=== PATIENT | female | born 1960 | race Hispanic/Latino ===

== ENCOUNTER 2017-06-01 07:26 | Day surgery (SDC) | payer BC ==
[2017-05-10 14:01] VITALS: BMI 33.6
[2017-06-01 07:45] LABS: BASO # 0.04 K/mm3 (0.0-2.0); BASO % 0.7 % (0.0-3.0); EOS # 0.1 (0.0-0.7); EOS % 2.1 % (1.5-5.0); GRAN # 2.11 (1.4-6.5); GRAN % 36.8 % (50.0-68.0); HEMOGLOBIN 12.4 g/dL (12.0-16.0); LYMPH # 2.9 (1.2-3.4); LYMPH % 51.2 % (22.0-35.0); MEAN CELL VOLUME 89.2 fl (80.0-105.0); MEAN CORPUSCULAR HEMOGLOBIN 29.8 pg (25.0-35.0); MEAN CORPUSCULAR HGB CONC 33.4 g/dl (31.0-37.0); MEAN PLATELET VOLUME 9.1 fl (7.0-11.0); MONO # 0.5 (0.1-0.6); MONO % 9.2 % (1.0-6.0); PLATELET COUNT 260 10^3/uL (120.0-450.0); RBC 4.16 10^6/uL (3.5-6.1); RED CELL DISTRIBUTION WIDTH 13.4 % (11.5-14.5); WHITE BLOOD COUNT 5.7 10^3/ul (4.5-11.0)
[2017-06-01 07:56] LABS: BLOOD UREA NITROGEN 12 mg/dL (7-21); CALCIUM 9.1 mg/dL (8.4-10.5); GFR AFRICAN-AMERICAN > 60; GFR NON-AFRICAN AMERICAN > 60; HDL CHOLESTEROL 58 mg/dL (29-60); INR 0.96 (0.93-1.08); PARTIAL THROMBOPLASTIN TIME 24.5 Seconds (23.7-30.8); PROTHROMBIN TIME 10.4 Seconds (9.9-11.8)
[2017-06-01 08:07] LABS: LDL CHOLESTEROL 119 mg/dL (0-129)
[2017-06-01] MEDS ORDERED: Lidocaine 2% Inj (20ml) ONE (08:56)
[2017-06-01] MEDS ORDERED: Phenylephrine 10 mg/ml Inj ONE (08:57)
[2017-06-01] MEDS ORDERED: Midazolam 2 MG/2 ML VIAL ONE ×2 (08:57→10:51)
[2017-06-01] MEDS ORDERED: Nitroglycerin 50mg in D5W 0 MG/0 ML BOTTLE IV ONE (08:58)
[2017-06-01] MEDS ORDERED: Iohexol 350mgl/ml 50 ML ONE (08:58)
[2017-06-01] MEDS ORDERED: Iodixanol 320 MG/ML 200 ML BOTTLE IV ONE (08:58)
[2017-06-01 12:41] VITALS: O2SAT 98
[2017-06-01 13:57] VITALS: TEMP 98.1
[2017-06-01] MEDS ORDERED: Bacitracin 500 Units/gm Oint Foilpak UD ONE (13:59)
[2017-06-01 14:12] VITALS: BP 99/54; PULSE 62; RESP 18
--- NOTE | 2017-06-07 14:27 | CARD ---
APPROVED REPORT Procedure(s) performed: Left Heart Catheterization HISTORY The patient is a 56 year-old female with a history of : most recent EF: 55%. (EF Method: Radionuclide), tobacco history() : The patient is a current smoker , dyslipidemia . INDICATION The indication(s) include : positive stress test, chest pain. CASE TECHNIQUE The patient was brought electively to the Cardiac Catheterization Laboratory in a fasting state and was prepped and draped in a sterile manner. The right wrist was infiltrated with 2% Lidocaine subcutaneous anesthesia. A 6 Fr Glidesheath (Radial) sheath was performed using coronary diagnostic catheters. The left coronary system was accessed and visualized with a 6 Fr JL 4 catheter. The right coronary system was accessed and visualized with a 6 Fr JR 4 catheter. The left ventricle was accessed and visualized with a 6 Fr Pigtail catheter. Left ventricular/Aortic Valve gradient assessed on pullback. Closure device was deployed with a Fr TR Band (Regular) without any complications. The patient tolerated the procedure well and there were no complications associated with the procedure. Vessel Analysis The patient's coronary anatomy is right dominant. The left main coronary artery is a large size vessel with intimal irregularities and without significant stenosis. The left main bifurcates to the left anterior descending and circumflex. The left anterior descending artery is a large size vessel with intimal irregularities and without significant stenosis. There is a 40% stenosis in the mid segment. The first diagonal branch is a small size vessel with intimal irregularities. The circumflex artery is a medium size vessel with intimal irregularities. The first obtuse marginal branch is a small size vessel with intimal irregularities. The right coronary artery is a large size vessel with intimal irregularities and without significant stenosis. There is a 50% stenosis in the mid segment. The right posterior descending artery is a medium size vessel with intimal irregularities. The right posterolateral branch is a medium size vessel with intimal irregularities. 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
== END 2017-06-01 15:30 | disposition home or self-care (01) ==
LOC: CATH 07:26
PROVIDERS: ATTEND Internal Medicine Interventional Cardiology
DX: I25.10 Atherosclerotic heart disease of native coronary artery without angina pectoris (principal); E78.5 Hyperlipidemia, unspecified; F17.200 Nicotine dependence, unspecified, uncomplicated
CPT/HCPCS: 36415; 80048; 80061; 85025; 85610; 85730; 86850; 86900; 93458; 99152; C1769 ×3; J1644 ×2; J2250; J2405; J3010; J7040